=== PATIENT | male | born 1975 | race African-American/Black ===

== ENCOUNTER 2022-11-17 03:28 | Emergency (ER) | payer MEDICAID, OTHER ==
[~2022-11-17] VITALS: Ht 180.3 cm; Wt 75.0 kg
[2022-11-17 03:28] VITALS: TEMP 98.4
[2022-11-17 06:00] VITALS: BP 150/80
[2022-11-17] MEDS ORDERED: LIDOCAINE HCL/EPINEPHRINE 1%-EPI 1:100,000 20 ML VIAL INFIL ONE (06:30)
[2022-11-17] MEDS ORDERED: BACITRACIN ZINC OINT UDPKT TOP ONE (06:30)
[2022-11-17] MEDS ORDERED: LIDOCAINE HCL/EPINEPHRINE 1%-EPI 1:100,000 20 ML VIAL INFIL NR (06:45)
[2022-11-17 07:00] VITALS: PULSE 100; RESP 20; O2SAT 98
[2022-11-17] MEDS ORDERED: NALO4SPR BOTHNSTRLS (07:06)
== END 2022-11-17 08:20 | disposition home or self-care (01) ==
LOC: ER2 04:36 → EDBD 04:36 → ER 08:20
DX: S61.412A Laceration without foreign body of left hand, initial encounter (principal); X58.XXXA Exposure to other specified factors, initial encounter; Y93.89 Activity, other specified; Y92.89 Other specified places as the place of occurrence of the external cause; Y99.8 Other external cause status
CPT/HCPCS: 12002; 99285; J3490; Z7610 ×4